=== PATIENT | female | born 1955 | race Caucasian/White ===

== ENCOUNTER 2018-05-17 10:21 | Inpatient (IN) | payer OTHER ==
[~2018-05-17 10:21] MED LIST: SUCCINYLCHOLINE CHLORIDE 100 MG/5 ML SYG IV
[2018-05-17] MEDS: POLYMYXIN/BACITRACIN 1L IRRIG (12:06)
[2018-05-17] MEDS: THROMBIN (BOVINE) 5,000 UNIT VIAL TP (12:06)
[2018-05-17] MEDS: GELATIN SIZE 100 SPONGE (12:06)
[2018-05-17] MEDS: LIDOCAINE 1%/EPI (1:100,000) (MDV) 20 ML (12:09)
[2018-05-17] MEDS ORDERED: DEXAMETHASONE 4 MG/ML 5 ML INJ (12:11)
[2018-05-17] MEDS ORDERED: ROCURONIUM 50 MG INJ (12:11)
[2018-05-17] MEDS ORDERED: FENTAnyl 50 MCG/ML VIAL (12:11)
[2018-05-17] MEDS ORDERED: CEFAZOLIN 1 GM INJ (12:11)
[2018-05-17] MEDS ORDERED: MIDAZOLAM 1 MG/ML 2 ML INJ (12:11)
[2018-05-17] MEDS ORDERED: PROPOFOL 20 ML (12:11)
[2018-05-17] MEDS ORDERED: GLYCOPYRROLATE 0.4 MG INJ (12:11)
[2018-05-17] MEDS ORDERED: ONDANSETRON 4 MG INJ (12:11)
[2018-05-17] MEDS ORDERED: PHENYLephrine (100 MCG/ML) 5ML SYG (12:37)
[2018-05-17] MEDS: CEFAZOLIN 1 GM/50 ML (PMX) 50 ML IVPB ×2 (12:49→21:59)
[2018-05-17] MEDS ORDERED: MIDAZOLAM 1 MG/ML 2 ML INJ IV (13:00)
[2018-05-17] MEDS ORDERED: ONDANSETRON 4 MG INJ IV (13:00)
[2018-05-17] MEDS ORDERED: HYDROmorphONE 1 MG/5 ML IV SYRINGE IV ×2 (13:00)
[2018-05-17] MEDS ORDERED: TRIMETHOBENZAMIDE 100 MG/ML VIAL IM (13:00)
[2018-05-17] MEDS ORDERED: IPRATROPIUM (NEB) 0.5 MG/2.5 ML AMP HHN (13:00)
[2018-05-17] MEDS ORDERED: MEPERIDINE 25 MG INJ IV (13:00)
[2018-05-17] MEDS ORDERED: ALBUTEROL 0.083% (NEB) 2.5 MG/3 ML AMP HHN (13:00)
[2018-05-17] MEDS ORDERED: EPHEDrine SULFATE 50 MG/5 ML SYG IV (13:00)
[2018-05-17] MEDS ORDERED: FENTAnyl 50 MCG/ML VIAL IV ×2 (13:00)
[2018-05-17] MEDS ORDERED: niCARdipine 50 MG in SOD CHLORIDE 0.9% 480 ML IV (13:00)
[2018-05-17] MEDS ORDERED: DIPHENHYDRAMINE 50 MG INJ IV (13:00)
[2018-05-17] MEDS ORDERED: OXYCODONE/ACETAMINOPHEN (5/325) TAB PO ×2 (13:00)
[2018-05-17] MEDS ORDERED: LABETALOL HCL 20MG INJ IV (13:00)
[2018-05-17] MEDS ORDERED: LABETALOL HCL 20MG INJ (13:38)
[2018-05-17] MEDS ORDERED: SUGAMMADEX SODIUM 200 MG/2 ML VIAL IV (14:14)
[2018-05-17] MEDS: HYDROmorphONE 1 MG/5 ML IV SYRINGE IV (15:36)
[2018-05-17] MEDS: ONDANSETRON 4 MG INJ IV (15:37)
[2018-05-17] MEDS: FENTAnyl 50 MCG/ML VIAL IV (15:37)
[2018-05-17] MEDS: hydrALAzine 20 MG INJ IV (16:11)
[2018-05-17] MEDS: DEXTROSE 5%-LR 1,000 ML IV ×2 (17:46→20:13)
[2018-05-17] MEDS: morphine 2 MG INJ IV ×2 (18:46→21:18)
[2018-05-18] MEDS: HYDROCODONE/APAP (5/325) TAB PO (00:11)
[2018-05-18] MEDS: morphine 2 MG INJ IV ×2 (02:17→20:44)
[2018-05-18] MEDS: DEXTROSE 5%-LR 1,000 ML IV ×3 (02:18→20:40)
[2018-05-18] MEDS: CEFAZOLIN 1 GM/50 ML (PMX) 50 ML IVPB ×2 (05:30→14:45)
[2018-05-18] MEDS: HYDROCODONE/APAP (7.5/325) TAB PO ×3 (08:07→18:48)
[2018-05-18] MEDS: PAROXETINE 20 MG TAB PO (12:38)
[2018-05-18] MEDS: AMLODIPINE 10 MG TAB PO (12:40)
[2018-05-18] MEDS ORDERED: morphine LIQ (20 MG/ML PO SYG) SL (14:30)
[2018-05-19] MEDS: HYDROCODONE/APAP (7.5/325) TAB PO ×3 (05:01→17:53)
[2018-05-19] MEDS: DEXTROSE 5%-LR 1,000 ML IV ×3 (05:06→21:00)
[2018-05-19 05:16] LABS: ADD MAN DIFF? NO
[2018-05-19 05:21] LABS: BASOPHILS % 0.5 % (0.0-2.0); EOSINOPHILS % 0.1 % (0.0-7.0); HEMATOCRIT 35.1 % (37.0-47.0); HEMOGLOBIN 11.5 g/dl (12.0-16.0); LYMPHOCYTES # 1.6 10^3/ul (0.8-2.9); LYMPHOCYTES % 19.5 % (15.0-51.0); MEAN CORPUSCULAR HEMOGLOBIN 29.7 pg (29.0-33.0); MEAN CORPUSCULAR HGB CONC 32.8 g/dl (32.0-37.0); MEAN CORPUSCULAR VOLUME 90.7 fl (82.0-101.0); MEAN PLATELET VOLUME 10.6 fl (7.4-10.4); MONOCYTE # 0.7 10^3/ul (0.3-0.9); MONOCYTES % 8.6 % (0.0-11.0); NEUTROPHILS % 70.9 % (39.0-77.0); PLATELET COUNT 175 10^3/UL (140-415); RED BLOOD COUNT 3.87 10^6/ul (4.20-5.40); RED CELL DISTRIBUTION WIDTH 12.8 % (11.5-14.5)
[2018-05-19 05:21] LABS: WHITE BLOOD COUNT 8.4 10^3/ul (4.8-10.8)
[2018-05-19 05:37] LABS: ANION GAP 5 (5-13); BLOOD UREA NITROGEN 3 mg/dl (7-20); CALCIUM 8.4 mg/dl (8.4-10.2); CARBON DIOXIDE 31 mmol/L (21-31); CHLORIDE 102 mmol/L (97-110); CREATININE 0.41 mg/dl (0.44-1.00); Estimated GFR > 60 mL/min (>60); GLUCOSE 122 mg/dl (70-220); POTASSIUM 3.5 mmol/L (3.5-5.1); SODIUM 138 mmol/L (135-144)
[2018-05-19] MEDS: PAROXETINE 20 MG TAB PO (08:48)
[2018-05-19] MEDS: AMLODIPINE 10 MG TAB PO (08:49)
[2018-05-19] MEDS: morphine 2 MG INJ IV (22:15)
[2018-05-20] MEDS: DEXTROSE 5%-LR 1,000 ML IV ×3 (04:03→21:00)
[2018-05-20] MEDS: HYDROCODONE/APAP (7.5/325) TAB PO ×4 (04:03→22:31)
[2018-05-20] MEDS: PAROXETINE 20 MG TAB PO (08:53)
[2018-05-20] MEDS: AMLODIPINE 10 MG TAB PO (08:54)
[2018-05-20 10:53] LABS: ADD MAN DIFF? NO
[2018-05-20 11:08] LABS: BASOPHIL # 0.1 10^3/ul (0.0-0.1); BASOPHILS % 0.9 % (0.0-2.0); EOSINOPHILS % 0.7 % (0.0-7.0); HEMATOCRIT 34.1 % (37.0-47.0); LYMPHOCYTES # 1.4 10^3/ul (0.8-2.9); LYMPHOCYTES % 23.5 % (15.0-51.0); MEAN CORPUSCULAR HEMOGLOBIN 29.5 pg (29.0-33.0); MEAN CORPUSCULAR HGB CONC 32.3 g/dl (32.0-37.0); MEAN CORPUSCULAR VOLUME 91.4 fl (82.0-101.0); MEAN PLATELET VOLUME 10.5 fl (7.4-10.4); MONOCYTE # 0.7 10^3/ul (0.3-0.9); MONOCYTES % 12.1 % (0.0-11.0); NEUTROPHIL # 3.6 10^3/ul (1.6-7.5); NEUTROPHILS % 62.5 % (39.0-77.0); PLATELET COUNT 180 10^3/UL (140-415); RED BLOOD COUNT 3.73 10^6/ul (4.20-5.40); RED CELL DISTRIBUTION WIDTH 12.6 % (11.5-14.5)
[2018-05-20 11:08] LABS: WHITE BLOOD COUNT 5.8 10^3/ul (4.8-10.8)
[2018-05-20 11:17] LABS: ANION GAP 6 (5-13); BLOOD UREA NITROGEN 2 mg/dl (7-20); CALCIUM 8.2 mg/dl (8.4-10.2); CARBON DIOXIDE 34 mmol/L (21-31); CHLORIDE 100 mmol/L (97-110); CREATININE 0.43 mg/dl (0.44-1.00); Estimated GFR > 60 mL/min (>60); GLUCOSE 124 mg/dl (70-220); POTASSIUM 3.5 mmol/L (3.5-5.1); SODIUM 140 mmol/L (135-144)
[2018-05-21] MEDS: DEXTROSE 5%-LR 1,000 ML IV ×2 (03:08→12:21)
[2018-05-21 05:31] LABS: ADD MAN DIFF? NO
[2018-05-21 05:39] LABS: BASOPHILS % 0.6 % (0.0-2.0); EOSINOPHILS # 0.1 10^3/ul (0.0-0.5); EOSINOPHILS % 1.2 % (0.0-7.0); HEMATOCRIT 33.7 % (37.0-47.0); HEMOGLOBIN 10.9 g/dl (12.0-16.0); LYMPHOCYTES # 2.4 10^3/ul (0.8-2.9); LYMPHOCYTES % 35.7 % (15.0-51.0); MEAN CORPUSCULAR HEMOGLOBIN 29.5 pg (29.0-33.0); MEAN CORPUSCULAR HGB CONC 32.3 g/dl (32.0-37.0); MEAN CORPUSCULAR VOLUME 91.1 fl (82.0-101.0); MEAN PLATELET VOLUME 10.7 fl (7.4-10.4); MONOCYTE # 0.7 10^3/ul (0.3-0.9); MONOCYTES % 10.5 % (0.0-11.0); NEUTROPHIL # 3.5 10^3/ul (1.6-7.5); NEUTROPHILS % 51.7 % (39.0-77.0); PLATELET COUNT 219 10^3/UL (140-415); RED CELL DISTRIBUTION WIDTH 12.7 % (11.5-14.5)
[2018-05-21 05:39] LABS: WHITE BLOOD COUNT 6.8 10^3/ul (4.8-10.8)
[2018-05-21 06:09] LABS: ANION GAP 3 (5-13); BLOOD UREA NITROGEN 4 mg/dl (7-20); CALCIUM 8.3 mg/dl (8.4-10.2); CARBON DIOXIDE 36 mmol/L (21-31); CHLORIDE 102 mmol/L (97-110); CREATININE 0.38 mg/dl (0.44-1.00); Estimated GFR > 60 mL/min (>60); GLUCOSE 99 mg/dl (70-220); POTASSIUM 3.4 mmol/L (3.5-5.1); SODIUM 141 mmol/L (135-144)
[2018-05-21] MEDS: HYDROCODONE/APAP (7.5/325) TAB PO ×3 (09:24→18:52)
[2018-05-21] MEDS: PAROXETINE 20 MG TAB PO (09:24)
[2018-05-21] MEDS: AMLODIPINE 10 MG TAB PO (09:25)
[2018-05-21] MEDS: DOCUSATE SODIUM 250 MG CAP PO (09:27)
[2018-05-21] MEDS: POTASSIUM CHLORIDE (SR) 10 MEQ TAB PO (12:21)
[2018-05-21] MEDS: morphine 2 MG INJ IV (23:33)
[2018-05-22] MEDS: HYDROCODONE/APAP (7.5/325) TAB PO ×3 (02:44→20:14)
[2018-05-22 05:47] LABS: ANION GAP 3 (5-13); BLOOD UREA NITROGEN 3 mg/dl (7-20); CALCIUM 8.4 mg/dl (8.4-10.2); CARBON DIOXIDE 35 mmol/L (21-31); CHLORIDE 103 mmol/L (97-110); CREATININE 0.41 mg/dl (0.44-1.00); Estimated GFR > 60 mL/min (>60); GLUCOSE 94 mg/dl (70-220); POTASSIUM 3.5 mmol/L (3.5-5.1); SODIUM 141 mmol/L (135-144)
[2018-05-22] MEDS: DEXTROSE 5%-LR 1,000 ML IV (06:20)
[2018-05-22] MEDS: PAROXETINE 20 MG TAB PO (09:00)
[2018-05-22] MEDS: AMLODIPINE 5 MG TAB PO (09:01)
[2018-05-22] MEDS: POLYETHYLENE GLYCOL 17 GM PACKET PO (12:59)
[2018-05-22] MEDS: DOCUSATE SODIUM 100 MG CAP PO (18:38)
[2018-05-23] MEDS: DEXTROSE 5%-LR 1,000 ML IV (00:49)
[2018-05-23] MEDS: HYDROCODONE/APAP (7.5/325) TAB PO ×2 (03:12→09:53)
[2018-05-23] MEDS: DOCUSATE SODIUM 100 MG CAP PO (09:11)
[2018-05-23] MEDS: AMLODIPINE 5 MG TAB PO (09:11)
[2018-05-23] MEDS: PAROXETINE 20 MG TAB PO (09:12)
[2018-05-23] MEDS: LACTULOSE 30ML CUP PO (09:51)
== END 2018-05-23 16:26 | disposition home health service (06) | DRG 460 ==
LOC: REC 10:21 → MS1 17:24
PROC: 0SG0071 Fusion of Lumbar Vertebral Joint with Autologous Tissue Substitute, Posterior Approach, Posterior Column, Open Approach (ICD-10-PCS; principal; 2018-05-17 12:26)
PROC: 0SP004Z Removal of Internal Fixation Device from Lumbar Vertebral Joint, Open Approach (ICD-10-PCS; 2018-05-17 12:26)
PROC: 5A09357 Assistance with Respiratory Ventilation, Less than 24 Consecutive Hours, Continuous Positive Airway Pressure (ICD-10-PCS; 2018-05-17 12:26)
DX: M47.26 Other spondylosis with radiculopathy, lumbar region (principal); M48.061 Spinal stenosis, lumbar region without neurogenic claudication; M43.16 Spondylolisthesis, lumbar region; I10 Essential (primary) hypertension; E78.5 Hyperlipidemia, unspecified; F17.200 Nicotine dependence, unspecified, uncomplicated; G47.33 Obstructive sleep apnea (adult) (pediatric); F32.9 Major depressive disorder, single episode, unspecified; E87.6 Hypokalemia; E66.01 Morbid (severe) obesity due to excess calories; Z68.37 Body mass index [BMI] 37.0-37.9, adult; Z98.1 Arthrodesis status
CPT/HCPCS: 72100; 80048; 85025; 86900; 86901; 87086; 88300; 94660; 97116; 97161; 97530